=== PATIENT | male | born 1955 | race Caucasian/White ===

== ENCOUNTER 2016-05-06 16:03 | Emergency (ER) | payer OTHER ==
[~2016-05-06] VITALS: Wt 105.5 kg
[2016-05-06] MEDS ORDERED: KETOROLAC 60 MG INJ IM STA (17:31)
[2016-05-06] MEDS ORDERED: DIAZ-90 PO (17:33)
[2016-05-06] MEDS ORDERED: NAPR-260 PO (17:33)
--- NOTE | 2016-05-06 17:43 | ERD ---
ER Documentation Chief Complaint Date/Time DATE: 05/06/16 TIME: 17:41 Chief Complaint LOW BACK PAIN, ONSET 5 DAYS, NO INJURY HPI This is a 61-year-old male presenting to the emergency room with acute on chronic lower back pain that started the past few days. Patient states that he was bending down lifting something heavy when the pain started. Patient states that he has tried Tylenol 3 but it did not give him any relief. Patient states that the pain prevents him from sleeping. He denies any saddle anesthesia, bladder or bowel incontinence, he denies fever. He rates the pain is moderate which is increased with movement ROS All systems reviewed and are negative except as per history of present illness. Medications Home Meds Active Scripts Diazepam* (Valium*) 5 Mg Tablet, 5 MG PO Q8 Y for MUSCLE SPASMS, #20 TAB Prov:JACQUELYN SOLARES PA-C 05/06/16 Naproxen* (Naprosyn*) 500 Mg Tablet, 500 MG PO BID Y for PAIN AND/OR INFLAMMATION, #30 TAB Prov:JACQUELYN SOLARES PA-C 05/06/16 Allergies Allergies: Coded Allergies: No Known Allergy (Unverified , 03/10/14) PMhx/Soc History of Surgery: No Anesthesia Reaction: No Hx Neurological Disorder: No Hx Respiratory Disorders: No Hx Cardiac Disorders: Yes (HTN) Hx Psychiatric Problems: No Hx Miscellaneous Medical Probl: Yes (GOUT) Hx Alcohol Use: Yes Hx Substance Use: No Hx Tobacco Use: Yes (8 STICKS) Smoking Status: Current every day smoker Physical Exam Vitals Vital Signs Date Time Temp Pulse Resp B/P Pulse Ox O2 Delivery O2 Flow Rate FiO2 05/06/16 16:08 97.7 91 17 176/89 98 Physical Exam GENERAL: WD/WN, in no apparent distress, non-toxic appearing HENT: NC/AT EYES: Conjunctiva normal NECK: Supple PULM: Normal labored breathing CV: Good capillary refill GI: Non-distended, no guarding BACK: no deformities noted, normal spinal curvature, TTP on lumbar region, non- tender on spine midline, negative straight leg raise EXT: No clubbing, cyanosis, or edema NEURO: Moves on all fours, sensation intact, normal gait SKIN: intact PSYCH: Normal mood Results 24 hrs Current Medications Medications (Trade) Dose Ordered Sig/Ilia Route PRN Reason Start Time Stop Time Status Last Admin Dose Admin Ketorolac Tromethamine (Toradol) 60 mg ONCE STAT IM 05/06/16 17:31 05/06/16 17:32 DC 05/06/16 17:35 Procedures/MDM 61-year-old male presents to the ER with lumbar back pain and muscle spasms, low suspicion for spinal abscess, vertebral fracture, cauda equina syndrome, spinal stenosis due to physical examination. In the ED patient was given Toradol injection. Patient is neurovascularly intact. Prescriptions naproxen and Valium was given to patient, discussed to return to the ED if not improving as expected or follow-up with a primary care physician. Patient understood and agreed with this plan. Departure Diagnosis: Primary Impression: Lumbosacral strain Encounter type: initial encounter Qualified Code: S39.012A - Lumbosacral strain, initial encounter Condition: Stable Patient Instructions: Relieving Back Pain, Self-Care for Low Back Pain, Back Pain (Acute Or Chronic) Additional Instructions: FOLLOW UP WITH YOUR PRIMARY CARE PHYSICIAN TOMORROW.Return to this facility if you are not improving as expected. Take all medicines as directed. Return to this facility if you are not improving as expected. You have been given a medicine which may cause drowsiness.DO NOT DRIVE OR OPERATE DANGEROUS MACHINERY while taking this medicine! JACQUELYN SOLARES PA-C May 06, 2016 17:43
== END 2016-05-06 18:02 | disposition home or self-care (01) ==
LOC: FTE 16:03
DX: S39.012A Strain of muscle, fascia and tendon of lower back, initial encounter (principal); F17.210 Nicotine dependence, cigarettes, uncomplicated; I10 Essential (primary) hypertension; X50.0XXA Overexertion from strenuous movement or load, initial encounter; Y92.9 Unspecified place or not applicable
CPT/HCPCS: 96372; J1885

== ENCOUNTER 2016-11-23 16:10 | Emergency (ER) | payer OTHER ==
[~2016-11-23] VITALS: Ht 177.8 cm; Wt 106.0 kg
[~2016-11-23 16:10] MED LIST: DIAZ-90 PO; NAPR-260 PO
[2016-11-23 16:13] VITALS: Ht 177.8 cm; Wt 106.0 kg
--- NOTE | 2016-11-23 17:15 | ERD ---
ER Documentation Chief Complaint Date/Time DATE: 11/23/16 TIME: 17:12 Chief Complaint LT FOOT PAIN , SWELLING H/O GOUT , RT KNEE ABRASIONS FROM FALL HPI Patient is a 61-year-old gentleman who has a history of gout and is complaining of a flareup of gout in the left foot. However patient also states that yesterday he fell from the ladder and he twisted his left ankle and also suffered a abrasion to the right knee. There is no head injury or KO. Patient is able to ambulate slowly with pain. He takes allopurinol and colchicine at home for gout but he is running out. He is unsure of his last tetanus vaccination. ROS All systems reviewed and are negative except as per history of present illness. Medications Home Meds Active Scripts Diazepam* (Valium*) 5 Mg Tablet, 5 MG PO Q8 Y for MUSCLE SPASMS, #20 TAB Prov:JACQUELYN SOLARES PA-C 05/06/16 Naproxen* (Naprosyn*) 500 Mg Tablet, 500 MG PO BID Y for PAIN AND/OR INFLAMMATION, #30 TAB Prov:JACQUELYN SOLARES PA-C 05/06/16 Allergies Allergies: Coded Allergies: No Known Allergy (Unverified , 03/10/14) PMhx/Soc History of Surgery: No Anesthesia Reaction: No Hx Neurological Disorder: No Hx Respiratory Disorders: No Hx Cardiac Disorders: Yes (HTN) Hx Psychiatric Problems: No Hx Miscellaneous Medical Probl: Yes (GOUT) Hx Alcohol Use: Yes Hx Substance Use: No Hx Tobacco Use: Yes (8 STICKS) FmHx Family History: No diabetes Physical Exam Vitals Vital Signs Date Time Temp Pulse Resp B/P Pulse Ox O2 Delivery O2 Flow Rate FiO2 11/23/16 16:13 98.7 96 18 156/86 97 Physical Exam General: well developed, well nourished, alert, nontoxic, no distress Head: normocephalic, atraumatic Eyes: PERRL, normal conjunctiva Respiratory: Clear to auscaultation bilaterally, speaks in full sentences, no use of accesory muscles or labored breathing, no rales, ronchi, or wheezing Cardiovascular: RRR, No murmurs Extremities: Right knee has superficial nonbleeding abrasion. Left ankle 2+ edema with tenderness over the lateral malleolus, no bony abnormalities, no erythema induration or swelling extending into the calf, sensation to light touch is intact, pedal pulses 2+, capillary refill less than 2 seconds, no bony abnormalities Procedures/MDM This is a 61-year-old male who has a gout flareup. However he did also fall yesterday and he now has pain and swelling to his left ankle. He was given [place] here for pain. He was given a tetanus vaccination. X-rays of the left foot and ankle were obtained. Results of x-rays were still pending at the end of my shift and this patient was endorsed the next provider who will dictate results of x-ray. Departure Diagnosis: Primary Impression: Gout Additional Impressions: Ankle pain Abrasion Condition: Stable TRACEY GROSS PA-C Nov 23, 2016 17:15
[2016-11-23] MEDS ORDERED: HYDR-906 PO (17:17)
[2016-11-23] MEDS ORDERED: COLC0.6T6 PO (17:19)
[2016-11-23] MEDS ORDERED: DIPHTH/TET/ACEL PERTUSS (ADULT) 0.5 ML VIAL IM* ONE (17:30)
[2016-11-23] MEDS ORDERED: HYDROCODONE/APAP (10/325) TAB PO ONE (17:30)
--- NOTE | 2016-11-23 17:55 | RADRPT ---
PROCEDURE: XR Ankle. CLINICAL INDICATION: Trauma, pain TECHNIQUE: AP and lateral views of the left ankle were performed. COMPARISON: None. FINDINGS: There is normal mineralization and alignment. No fracture or osseous lesion is identified. The joint s are normal. The soft tissues are unremarkable. There is peripheral arterial calcification. There is a small posterior calcaneal spur. There is medial and lateral soft tissue swelling. IMPRESSION: Soft tissue swelling. No visualized fracture or dislocation. Peripheral arterial calcification. RPTAT: HBST .Mihir Fleming MD, MD Date Time Electronically viewed and signed by .Mihir Fleming MD, MD on 11/23/2016 17:55 .T/
--- NOTE | 2016-11-23 17:58 | RADRPT ---
PROCEDURE: XR Foot. CLINICAL INDICATION: Trauma, pain TECHNIQUE: AP, lateral and oblique views of the left foot was obtained. The images were reviewed on a PACS workstation. COMPARISON: None. FINDINGS: The bones of the foot appear intact, with no evidence of fracture, dislocation, or subluxation. The joint spaces are preserved. Bone mineralization is normal. No significant soft tissue swelling is se en. There is a thin metallic wire projecting in the region of the lower first digit distal phalanx. IMPRESSION: 1. No visualized fracture or dislocation. 2. Thin metallic wire projecting in the lower first digit distal phalanx region, of uncertain etiol ogy. RPTAT: HBST .Mihir Fleming MD, MD Date Time Electronically viewed and signed by .Mihir Fleming MD, on 11/23/2016 17:58 .T/
[2016-11-23 19:50] VITALS: BP 140/77; PULSE 78; RESP 18; TEMP 98.7
[2016-11-23] MEDS ORDERED: DEXAMETHASONE 10 MG/ML 1 ML INJ IM ONE (20:00)
== END 2016-11-23 19:54 | disposition home or self-care (01) ==
LOC: FTE 16:10
DX: M10.9 Gout, unspecified (principal); S99.911A Unspecified injury of right ankle, initial encounter; I10 Essential (primary) hypertension; F17.210 Nicotine dependence, cigarettes, uncomplicated; W11.XXXA Fall on and from ladder, initial encounter; Y92.9 Unspecified place or not applicable; Z23 Encounter for immunization
CPT/HCPCS: 73610; 73630; 90471; 90715; 96372; J1100; Z7502; Z7610

== ENCOUNTER 2017-01-23 07:04 | Day surgery (SDC) | payer OTHER ==
[~2017-01-23] VITALS: Ht 177.8 cm; Wt 90.2 kg
[~2017-01-23 07:04] MED LIST changes: +COLC0.6T6 PO; +HYDR-906 PO
[2017-01-23 08:10] VITALS: Ht 177.8 cm; Wt 90.2 kg
[2017-01-23] MEDS ORDERED: PROPOFOL 40 ML ONE (08:23)
[2017-01-23] MEDS ORDERED: GLYCOPYRROLATE 0.4 MG INJ ONE (08:36)
[2017-01-23 08:44] VITALS: BP 124/68; PULSE 73; RESP 20
--- NOTE | 2017-01-23 09:31 | OPPN ---
Date/Time of Note Date/Time of Note DATE: 01/23/17 TIME: 09:28 Operative Report Preoperative Diagnosis Dysphagia Change in bowel habit Weight loss Screening colonoscopy Postoperative Diagnosis Hiatal hernia Gastroesophageal reflux disease Gastritis with erosions Large sigmoid tumor at 40 centimeters from the anus Sigmoid polyp at 60 cm was removed Diverticulosis of the colon Internal hemorrhoids Operation/Procedure Performed Esophagogastroduodenoscopy and biopsy Colonoscopy and polypectomy Biopsy of the sigmoid tumor and tattooing with Eva ink Surgeon see signature line legal administrative assistant None Anesthesia: MAC Estimated blood loss: none Transfusion Required none Specimen Gastric mucosal biopsy Biopsy of the sigmoid tumor Sigmoid polyp Grafts/Implants none Complications none SEAN GOMEZ MD Jan 23, 2017 09:31
[2017-01-23 09:55] VITALS: BP 106/62; RESP 14
--- NOTE | 2017-01-23 10:48 | GILP ---
DATE OF PROCEDURE: 01/23/2017 PROCEDURE PERFORMED: 1. Esophagogastroduodenoscopy and biopsy. 2. Colonoscopy, biopsy, polypectomy and tattooing with Eva ink. PREOPERATIVE DIAGNOSES: 1. Dysphagia. 2. Change in bowel habits. 3. Screening colonoscopy. POSTOPERATIVE DIAGNOSES: 1. Hiatal hernia. 2. Gastroesophageal reflux disease. 3. Gastritis with erosions. 4. Gastric mucosal biopsies were taken for Helicobacter pylori test. 5. Colonoscopy all the way to the cecum. 6. Large sigmoid tumor at 40 cm from the anus, and biopsies were taken for histopathology. 7. The area was tattooed with Eva ink. 8. Sigmoid polyp at 60 cm from the anus was removed using the snare and electrocautery. 9. Diverticulosis of the colon. 10. Internal hemorrhoids. INDICATIONS FOR PROCEDURE: Mr. Mikey South is a 61-year-old male patient who had dysphagia, change in bowel habits and weight loss. He also needed a screening colonoscopy. The procedures and possible complications were well explained to the patient. He understood and consented to the procedures. DESCRIPTION OF PROCEDURE: Under the influence of anesthesia, the gastroscope was carefully introduced into the esophagus and under direct vision, it was advanced to the stomach, into the pylorus, into the duodenal bulb, and descending duodenum. FINDINGS: Esophagus: Patient had a hiatal hernia and gastroesophageal reflux disease. Stomach: He had gastritis with erosions. Gastric mucosal biopsies were taken for H pylori test. Duodenum was normal. The colonoscope was carefully introduced in the rectum, and under direct vision, it was advanced all the way to the cecum. FINDINGS: The patient had a large sigmoid tumor at 40 cm from the anus, and multiple biopsies were taken for histopathology. The area was tattooed with Eva ink. The patient also had a sigmoid polyp at 60 cm from the anus, and it was removed using the snare and electrocautery. He was noted to have diverticulosis of the colon and internal hemorrhoids. He tolerated the procedures very well. There was no complication from the procedures. At the end of procedure, he was awake with stable vital signs and he was discharged home in the care of his family. IMPRESSION: Please see postop diagnoses. PLAN: 1. Omeprazole 40 mg p.o. in the morning. 2. Await histopathology reports. 3. The patient will need surgical resection of the sigmoid tumor. Dictated By: MD MARIE Alcazar/yeny/davi /Document#: [id number]
== END 2017-01-23 14:37 | disposition home or self-care (01) ==
LOC: GIL 07:04
PROVIDERS: ATTEND Internal Medicine Gastroenterology
DX: Z12.11 Encounter for screening for malignant neoplasm of colon (principal); D12.5 Benign neoplasm of sigmoid colon; K44.9 Diaphragmatic hernia without obstruction or gangrene; K29.60 Other gastritis without bleeding; K57.90 Diverticulosis of intestine, part unspecified, without perforation or abscess without bleeding; K21.9 Gastro-esophageal reflux disease without esophagitis; F17.200 Nicotine dependence, unspecified, uncomplicated
CPT/HCPCS: 43239; 45380; 45381; 87081; 88305; Z7610

== ENCOUNTER 2017-04-16 10:11 | Outpatient (CLI) | payer OTHER ==
[~2017-04-16] VITALS: Ht 177.8 cm; Wt 88.2 kg
[2017-04-16 10:15] VITALS: BP 121/72; PULSE 89; RESP 18; Ht 177.8 cm; Wt 88.2 kg
[2017-04-16] MEDS ORDERED: TYL2 PO (10:29)
[2017-04-16] MEDS ORDERED: ALLO300T2 PO (10:29)
[2017-04-16] MEDS ORDERED: BEN25 PO (10:29)
[2017-04-16] MEDS ORDERED: ERGO500037 PO (10:29)
[2017-04-16] MEDS ORDERED: IBUP800T25 PO (10:29)
[2017-04-16] MEDS ORDERED: CALC1TAB79 PO (10:29)
[2017-04-16] MEDS ORDERED: ZOLP5TAB PO (10:29)
[2017-04-16] MEDS ORDERED: OMEG-135 PO (10:29)
--- NOTE | 2017-04-16 13:03 | CONS ---
DATE OF CONSULTATION: 04/16/[facility] INITIAL OUTPATIENT CONSULTATION NOTE PLACE OF SERVICE: [facility]. REFERRING PHYSICIAN: Pipo Reaves MD. Dear Dr. Waller: Thank you very much for allowing us to participate in the care of this very pleasant gentleman and his wonderful family. REASON FOR CONSULTATION: Sigmoid colon malignancy with questionable liver lesions and early cirrhosis. HISTORY OF PRESENT ILLNESS: The patient is a very pleasant 61-year-old gentleman with a few comorbidities who was recently diagnosed with having descending colon malignancy on colonoscopy that was performed for both screening as well as for dysphagia, change in bowel habits and weight loss. Upper and lower endoscopy was done by Dr. Guerrier at [facility] on 01/24/2017 with postoperative diagnosis of the endoscopy being hiatal hernia, gastroesophageal reflux disease, gastritis with erosions, gastric mucosal biopsy taken and then colonoscopy which showed a large sigmoid tumor at 40 cm from the anus, where biopsies were performed and the area was tattooed with Eva ink. There was also a polyp at 60 cm from the anus, which was removed using snare and electrocautery. Diverticulosis of the colon and internal hemorrhoids were found. The pathology report demonstrated tubular adenoma of the polyp at 60 cm in the sigmoid colon with no normal mucosa present , but no evidence of high-grade dysplasia or malignancy. 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 The gastric biopsies showed slight positivity for urease. The patient was referred to colorectal surgery with Dr. Melgar and after understanding of possible liver disease he was also sent to you, Dr. Reaves, for further evaluation. Note that the patient has a history of drinking about 1 to 2 beers a day along with 1 or 2 cocktails for a number of decades, which he stopped approximately 01/2017. He has never been shown to have hepatitis B or hepatitis C infections. His other risk factor is perhaps elevated BMI. The patient has had numerous axial images some of which we have available in our system, starting from 05/2016 with ultrasound of the abdomen and pelvis along with the CT scan of the abdomen and pelvis on 01/15/2017, a chest CT on 2016, abdominal CT on 03/24/2017 and a liver-dedicated MRI of the abdomen on . Most of these images are not adequate quality to evaluate the liver well with the exception of the MRI. The MRI demonstrates no focal lesions in the liver and the liver appears somewhat cirrhotic. There are stigmata of portal hypertension including splenomegaly, but no evidence of ascites. A suspicious lesion in the mid descending colon with mild surrounding inflammation concerning for neoplasm was seen. The other images also do not show any obvious evidence of metastatic disease. My own interpretation of the liver on the MRI is also concordant with the official report, although there is mildly questionable area to the right of gallbladder in segment 5 and also another area in the superficial aspect of segment 6, but certainly no obvious focal lesions. Note that the patient's laboratory values from March show a platelet count of 116 indicating possible portal hypertension and albumin of 3.5 , which could be indicating a low-grade malnutrition. Alpha 1 antitrypsin was 140. Alpha fetoprotein was 5.6, CA 19-9 was 25, ACT in smooth muscle antibody was normal at 19, GGT was 57, Ceruloplasmin was 25.9. Hepatitis B core antibody was negative. I had the pleasure of meeting the patient today in my office and he reported having symptoms of abdominal pain, mainly in the pelvic region from his pubic bone up to his umbilicus in a band-like pattern which occurs intermittently and at times are strong enough that would make him want to go to the emergency room. Note that he has not been to the emergency room or urgent care in the last few months, but does endorse a 40 pound weight loss from 240 to 200. He also does not report any major issues with blood in the stool or urine or blood in the emesis. Very minimal nausea reported but no vomiting. No cardiopulmonary symptoms that are noticeable. He does not report easy bruisability or bleeding and otherwise has a life that has been affected by a few of his comorbidities including his bilateral knee joint problems requiring him to be walking with a cane. He is able to go up about 2 flights of stairs if he had to and would not experience shortness of breath or chest pain, but the limiting factor would be his knees. COMORBIDITIES: 1. Possible cirrhosis of the liver with diagnosis around 03/2017 with possible etiologies including alcohol intake and no evidence of hepatitis B or hepatitis C. There is also question of a contribution from elevated BMI. BMI is 27.9. 2. Status post diagnosis of sigmoid/mid descending colon tumor approximately 40 cm from the anus, biopsied as above 01/2017. 3. Gastroesophageal reflux disease without esophagitis. 4. Gastritis, which appears to be chronic. 5. Hiatal hernia 03/13/2017. 6. Hemorrhoids 03/13/2017. 7. Diverticulosis of the intestine without bleeding. 8. Gout. 9. Vitamin D deficiency. 10. Bilateral knee pain. 11. Possible renal mass as seen on solid nodule in the right kidney on the ultrasound 11/15/2015, but subsequently not seen on several ultrasounds and CT scans. 12. Hyperlipidemia. 13. HDL deficiency. 14. Alcohol abuse. 15. Smoking status is positive 16. History of malignancy in family with maternal grandmother possibly dying from breast cancer or cervical cancer at a young age, maternal grandmother with unknown malignancy and a great aunt with unknown malignancy. The patient's mother and father both from stroke. ALLERGIES: NO KNOWN DRUG ALLERGIES. MEDICATIONS: Carefully recorded and reviewed in the electronic health record system. SOCIAL HISTORY: The patient is single and was born in [place], [place]. Currently unemployed and has no children. He smokes every day 1 to 9 cigarettes per day. He drank alcohol since age 17 of 2 to 3 beers a day along with 2 cocktails. He had a DUI about 30 years ago. He quit in 01/2017. He does not report any intravenous drug use. FAMILY HISTORY: As above. REVIEW OF SYSTEMS: Other than the above-mentioned, there are no other pertinent positives or pertinent negatives in a complete 14-point review of systems. PHYSICAL EXAMINATION: GENERAL: The patient appears to be a very pleasant gentleman of non- descent, appearing stated age, sitting in a chair in no acute distress. BMI is 27.9. VITAL SIGNS: Normal with the exception of slightly high blood pressure of 121/ 72. HEENT: Head is normocephalic and atraumatic. His extraocular muscles and hearing are grossly intact bilaterally and symmetrically. His sclerae are nonicteric. His oral cavity is clear and his oral mucosa appear to be pink and moist. He has fair to poor dentition. NECK: Supple. There is no lymphadenopathy or JVD. There is no submental, submandibular or supraclavicular lymphadenopathy. CHEST: Rises symmetrically with each breath and he is breathing comfortably and in no acute distress. ABDOMEN: Soft, nontender and nondistended. There is no evidence of organomegaly, caput medusae, engorged subcutaneous veins or ascites. There is a small umbilical hernia about 1 cm in diameter that contains a slight amount of fat which is easily reducible. The area is minimally causing discomfort, but no significant tenderness. The skin overlying this area is pink and appears to be normal. There are no peritoneal signs or guarding. SKIN: Appears to be pink and feels warm to touch. NEUROLOGIC: He is awake, alert and follows commands appropriately. LABORATORY VALUES: Pertinent values are mentioned above. IMAGING: Pertinent image findings are mentioned above. Note that I personally reviewed all the available images and I agree in general with their overall reported findings. ASSESSMENT AND PLAN: This is a very pleasant 61-year-old gentleman with a number of comorbidities including elevated body mass index of 27.9 and perhaps a mildly cirrhotic liver, possibly from his alcohol intake in the past, presenting with a surgically resectable mid descending colon adenocarcinoma without obvious evidence of metastatic disease. The question of liver lesions is not easily answered with the available images, but there is no focal lesions that could be called out on any of the images including the high quality liver MRI that we have from 03/2017. There are questionable areas in the liver around the gallbladder and perhaps near the surface of segment 6 of the liver and the possibilities include only cirrhotic liver versus cirrhotic liver with metastatic colon cancer to them versus hepatocellular carcinoma or other unga liver malignancies. In effect, none of these will impact the recommendation to go ahead with surgical exploration and remove the colon mass, but hopefully with the ability to do an interrogation of the liver with intraoperative ultrasound and possible biopsy, possible resection of the gallbladder and even possible partial hepatectomy, should it be necessary. I certainly am able to provide the patient with all of the above and I have given him the option of going back to the original surgeons that he was referred to, but if he is comfortable with the information that I gave him then I would be happy to manage all of this for the patient during the same setting. After carefully considering all his options, the patient indicated that he would like to have us manage all of the issues for him and we would be happy to do so. I reviewed the risks, benefits and alternatives of this approach and reviewed the operation in detail with the patient (no family in the room) and answered all the patient's questions. I obtained the patient's consent for this operation and we are planning on doing this in early 05/2017. The patient did not appear to have any other questions and seemed to agree with the plans. With above assessments, I have recommended the followin. Preoperative history and physical. 2. Set the patient up for laparoscopic, possible open sigmoid/descending colectomy with possible ostomy, possible intraoperative ultrasound of the liver , possible biopsy of the liver, possible cholecystectomy and possible partial hepatectomy. 3. It would be advisable to assess the patient's knees perhaps through an orthopedic surgery group to see if there are any issues that we can handle or manage perioperatively for increased success of outcome. 4. Assess KRAS, BRAF and other mutations on the biopsy of the colon and plan on evaluating these in the final pathology specimen as well. 5. Multidisciplinary Tumor Board presentation. Thank you again for allowing us to participate in the care of this very pleasant gentleman and I am certain his wonderful family. If there are any questions, please feel free to contact me at [phone]. NATURE OF PRESENTING PROBLEM: High risk. COMPLEXITY OF DECISION MAKING: High complexity. Dictated By: RAQUEL HUTSON/JARETH Conf#: [id number] DID#: [id number] CC: Ky Pires; Pipo Waller;*EndCC* MTDD
== END 2017-04-16 15:27 | disposition home or self-care (01) ==
LOC: HPC 10:11
PROVIDERS: ATTEND Transplant Surgery
DX: C18.6 Malignant neoplasm of descending colon (principal)
CPT/HCPCS: G0463

== ENCOUNTER 2017-05-20 05:51 | Inpatient (IN) | END 2017-05-23 15:50 | disposition home or self-care (01) | DRG 331 ==

== ENCOUNTER 2018-01-19 13:08 | Emergency (ER) | END 2018-01-19 16:28 | disposition home or self-care (01) ==

== ENCOUNTER 2018-09-30 00:51 | Emergency (ER) | payer OTHER ==
[~2018-09-30] VITALS: Wt 108.0 kg
[~2018-09-30 00:51] MED LIST changes: +ALLO300T2 PO; +BEN25 PO; +CALC1TAB79 PO; +CEPH-443 PO; -DIAZ-90 PO; +DIAZ5TAB PO; +ERGO500013 PO; -HYDR-906 PO; +IBUP-1544 PO; -NAPR-260 PO; +NAPR-985 PO; +OMEG-135 PO; +SULF1TAB31 PO; +ZOLP5TAB PO
[2018-09-30] MEDS ORDERED: FLUORESCEIN STRIP LEFT EYE ONE (04:00)
[2018-09-30] MEDS ORDERED: TETRACAINE 0.5% 4 ML OPH LEFT EYE ONE (04:00)
[2018-09-30] MEDS ORDERED: OFLO5DRO46 LEFT EYE (04:19)
[2018-09-30 04:20] VITALS: BP 134/80; PULSE 78; RESP 19
--- NOTE | 2018-09-30 05:02 | ERD ---
ER Documentation Chief Complaint Chief Complaint FOREIGN OBJECT LEFT EYE HPI 63-year-old male presenting with a foreign body to his left eye. Patient states he was grinding cutting earlier today and he sustained an foreign body to his eye. He rinsed with water but no alleviation. Denies any contacts or glasses but does have a history of lens replacement. Denies other medical problems. NKDA. Surgical history denies. Social history denies ROS All systems reviewed and are negative except as per history of present illness. Medications Home Meds Active Scripts Ofloxacin* (Ocuflox*) 0.3%-5 Ml Ophth Drops, 1 DROP LEFT EYE QID, #1 BOTTLE Prov:ALICIA VILLALBAC 09/30/18 Sulfamethoxazole/Trimethoprim* (Bactrim Ds* Tablet) 1 Each Tablet, 1 TAB PO BID for 5 Days, TAB Prov:JACQUELYN SOLARESC 01/19/18 Cephalexin* (Keflex*) 500 Mg Capsule, 500 MG PO QID for 5 Days, CAP Prov:JACQUELYN SOLARESC 01/19/18 Colchicine* (Colcrys*) 0.6 Mg Tablet, 0.6 MG PO DAILY, #20 TAB Prov:TRACEY GROSS PA-C 11/23/16 Diazepam* (Valium*) 5 Mg Tablet, 5 MG PO Q8 PRN for MUSCLE SPASMS, #20 TAB Prov:JACQUELYN SOLARES PA-C 05/06/16 Naproxen* (Naprosyn*) 500 Mg Tablet, 500 MG PO BID PRN for PAIN AND/OR INFLAMMATION, #30 TAB Prov:JACQUELYN SOLARESC 05/06/16 Reported Medications Diphenhydramine Hcl* (Benadryl*) 25 Mg Cap, 25 MG PO QHS PRN for ITCHING, CAP 04/16/17 Zolpidem Tartrate* (Ambien*) 5 Mg Tablet, 5 MG PO QHS PRN for INSOMNIA, #30 TAB 04/16/17 Ibuprofen* (Ibuprofen*) 800 Mg Tablet, 800 MG PO Q8 for PAIN LEVEL 1-5, TAB 04/16/17 Allopurinol* (Allopurinol*) 300 Mg Tablet, 300 MG PO DAILY, TAB 04/16/17 Ergocalciferol (Vitamin D2) (VITAMIN D2) 50,000 Unit Capsule, 73265 UNIT PO weekly, CAP 04/16/17 Calcium Carbonate/Vitamin D3 ([place] 500+D Tablet) 1 Each Tablet, 1 EACH PO QID, TAB 04/16/17 [place]-3 Fatty Acids/Fish Oil (Fish Oil 1,000 mg Capsule) 1 Each Capsule, 1 EACH PO, CAP 04/16/17 Allergies Allergies: Coded Allergies: No Known Allergy (Unverified , 11/23/16) PMhx/Soc History of Surgery: Yes (colonoscopy) Anesthesia Reaction: No Hx Neurological Disorder: No Hx Respiratory Disorders: No Hx Cardiac Disorders: No Hx Psychiatric Problems: No Hx Miscellaneous Medical Probl: Yes Hx Alcohol Use: No (stop for 6 months) Hx Substance Use: No Hx Tobacco Use: Yes (1/2 pack a day) Smoking Status: Current every day smoker FmHx Family History: No diabetes, No coronary disease, No other Physical Exam Vitals Vital Signs Date Temp Pulse Resp B/P (MAP) Pulse Ox O2 O2 Flow FiO2 Time Delivery Rate 09/30/18 98.3 78 19 134/80 99 Room Air 04:20 (98) 09/30/18 97.9 70 18 146/77 98 00:56 (100) Physical Exam GENERAL: The patient is well-appearing, well-nourished, in no acute distress HEENT: Atraumatic. Conjunctivae are pink. Pupils equal, round, and reactive to light. There is no scleral icterus. Tympanic membranes clear bilaterally. Oropharynx clear. Small black foreign body noted over the cornea of the left eye. Mild injection of the sclera NECK: C-spine is soft and supple. There is no meningismus. There is no ce rvical lymphadenopathy. CHEST: Clear to auscultation bilaterally. There are no rales, wheezes or rhonchi. HEART: Regular rate and rhythm. No murmurs, clicks, rubs or gallops. Results 24 hrs Current Medications Medications Dose Sig/Ilia Start Time Status Last (Trade) Ordered Route PRN Stop Time Admin Dose Reason Admin Fluorescein 1 strip ONCE ONCE 09/30/18 DC Sodium LEFT EYE 04:00 ([id number] 09/30/18 04:01 p) Tetracaine 1 drop ONCE ONCE 09/30/18 DC HCl LEFT EYE 04:00 (Tetracaine 09/30/18 04:01 0.5% Steri-Unit Harleen) Procedures/MDM ER course: Tetracaine applied to the left eye. Using an insulin syringe foreign body was removed without complication. No iatrogenic injury. MDM: 63-year-old male presenting with foreign body to left cornea. Patient had foreign body removed in the emergency room. Patient was discharged with ophthalmic antibiotic drops. I have low suspicion for globe rupture. I have lo w suspicion for retained foreign body. Patient is discharged with strict ER precautions and told to follow-up with primary care within 1 to 2 days for close evaluation. Patient is told symptoms change or worsen to return immediately to the ER. All questions answered at discharge Departure Diagnosis: Primary Impression: Foreign body in cornea Condition: Stable Patient Instructions: Foreign Object in the Ear or Nose Referrals: [facility] YOU HAVE RECEIVED A MEDICAL SCREENING EXAM AND THE RESULTS INDICATE THAT YOU DO NOT HAVE A CONDITION THAT REQUIRES URGENT TREATMENT IN THE EMERGENCY DEPARTMENT. FURTHER EVALUATION AND TREATMENT OF YOUR CONDITION CAN WAIT UNTIL YOU ARE SEEN IN YOUR DOCTORS OFFICE WITHIN THE NEXT 1-2 DAYS. IT IS YOUR RESPONSIBILITY TO MAKE AN APPOINTMENT FOR FOLOW-UP CARE. IF YOU HAVE A PRIMARY DOCTOR --you should call your primary doctor and schedule an appointment IF YOU DO NOT HAVE A PRIMARY DOCTOR YOU CAN CALL OUR PHYSICIAN REFERRAL HOTLINE AT IF YOU CAN NOT AFFORD TO SEE A PHYSICIAN YOU CAN CHOSE FROM THE FOLLOWING [facility] [address] [facility]. [facility] [address] [facility] [facility] [address] [facility] [facility] [address] [facility] [facility] [address] [facility] [facility]. [address] Additional Instructions: FOLLOW UP WITH YOUR PRIMARY CARE PHYSICIAN TOMORROW.Return to this facility if you are not improving as expected. ALICIA VILLALBA PA-C September 30, 2018 05:02
== END 2018-09-30 04:21 | disposition home or self-care (01) ==
LOC: FTE 00:51
DX: T15.02XA Foreign body in cornea, left eye, initial encounter (principal); F17.210 Nicotine dependence, cigarettes, uncomplicated; X58.XXXA Exposure to other specified factors, initial encounter; Y92.9 Unspecified place or not applicable
CPT/HCPCS: 65220; Z7502; Z7610